=== PATIENT | male | born 1995 | race Caucasian/White ===

== ENCOUNTER 2020-08-25 06:07 | Emergency (ER) | payer SELFPAY ==
[2020-08-25 07:59] LABS: HEMOGLOBIN 16.7 gm/dl (14.0-17.5); RED BLOOD COUNT 5.68 M/UL (4.20-5.50); WHITE BLOOD COUNT 7.8 K/UL (4.5-11.0)
[2020-08-25 08:00] LABS: BUN/CREATININE RATIO 14 (0-10)
[2020-08-25] MEDS ORDERED: FLOMAX 0.4 MG0.4 MG PO (08:37)
[2020-08-25] MEDS ORDERED: ZOFRAN ODT 4 MG4 MG PO (08:37)
[2020-08-25] MEDS ORDERED: PERCOCET 5-3251 EACH PO (08:37)
== END 2020-08-25 08:50 | disposition home or self-care (01) ==
LOC: ER1 06:07
PROVIDERS: Family Medicine
DX: N13.2 Hydronephrosis with renal and ureteral calculous obstruction (principal)
CPT/HCPCS: 80053; 81001; 82150; 83690; 85025; 96374; 96375; 99284; J1885; J2405

== ENCOUNTER 2021-10-13 09:49 | Emergency (ER) | payer MEDICAID ==
[~2021-10-13 09:49] MED LIST: FLOMAX 0.4 MG0.4 MG PO; PERCOCET 5-3251 EACH PO; ZOFRAN ODT 4 MG4 MG PO
[2021-10-13 10:15] LABS: HEMOGLOBIN 16.1 gm/dl (14.0-17.5); RED BLOOD COUNT 5.54 M/UL (4.20-5.50); WHITE BLOOD COUNT 11.2 K/UL (4.5-11.0)
[2021-10-13 10:38] LABS: BUN/CREATININE RATIO 16 (0-10)
[2021-10-13] MEDS ORDERED: IBUPROFEN600 MG PO (12:43)
== END 2021-10-13 13:10 | disposition home or self-care (01) ==
LOC: ER1 09:49
PROVIDERS: Emergency Medicine
DX: N20.0 Calculus of kidney (principal); Z87.442 Personal history of urinary calculi
CPT/HCPCS: 80053; 81001; 83690; 85025; 96374; 96375; 99284; J2270; J2405; Q9967